=== PATIENT | male | born 1965 | race Caucasian/White ===

== ENCOUNTER 2023-08-23 08:34 | Day surgery (SDC) | payer BC ==
[2023-08-23] MEDS: Lactated Ringers 1,000 ML IV SCH (09:00)
[2023-08-23] MEDS: Nozin Nasal Sanitizer NASBOTH ONE (09:01)
[2023-08-23 09:13] LABS: HEMATOCRIT 44.9 % (38.4-49.7); HEMOGLOBIN 15.6 g/dL (12.9-16.9); MEAN CORPUSCULAR HEMOGLOBIN 30.9 pg (31.6-35.5); MEAN CORPUSCULAR HGB CONC 34.7 g/dL (31.6-35.5); MEAN CORPUSCULAR VOLUME 88.9 fL (81.4-99.0); RED BLOOD CELL COUNT 5.05 M/uL (4.14-5.76); WHITE BLOOD CELL COUNT,WBC 4.2 K/uL (3.2-11.0)
[2023-08-23 09:33] LABS: A/G RATIO 1.3 (1.2-2.2); ALANINE AMINOTRANSFERASE,ALT 32 U/L (12-78); ALBUMIN 4.1 g/dL (3.4-5.0); ALKALINE PHOSPHATASE 63 U/L (46-116); ANION GAP 10.4 mmol/L (5.0-14.0); ASPARTATE AMNIOTRANSFERASE,AST 23 U/L (15-37); BILIRUBIN TOTAL 0.6 mg/dL (0.2-1.0); BLOOD UREA NITROGEN,BUN 24 mg/dL (7-18); CALCIUM 9.3 mg/dL (8.5-10.1); CARBON DIOXIDE,CO2 28 mmol/L (21-32); CHLORIDE,CL 102 mmol/L (100-108); CREATININE 1.3 mg/dL (0.8-1.3); EST CRCL DRUG DOSING (CG) 49.67 mL/min; ESTIMATED GFR 64 mL/min (>60); GLUCOSE RANDOM 93 mg/dL (74-106); POTASSIUM,K 4.2 mmol/L (3.6-5.2); PROTEIN TOTAL,TP 7.3 g/dL (6.4-8.2); SODIUM,NA 140 mmol/L (140-148)
[2023-08-23] MEDS ORDERED: Midazolam 1 MG/ML 2 ML SDV ONE (10:38)
[2023-08-23] MEDS ORDERED: Propofol 200 MG/20 ML SDV ONE (10:38)
[2023-08-23] MEDS ORDERED: fentaNYL 100 MCG/2 ML SDV ONE (10:38)
[2023-08-23] MEDS ORDERED: Bupivacaine 0.5% 30 ML SDV ONE (10:39)
[2023-08-23] MEDS: ceFAZolin 2 GM in Premix Bag 1 BAG IV ONE (10:41)
[2023-08-23] MEDS: Bupivacaine 0.5% 30 ML SDV ONE (11:56)
[2023-08-23] MEDS: Acetaminophen/HYDROcodone 325-5 MG Tab PO ONE (13:31)
[2023-08-23 13:32] VITALS: BP 146/77; PULSE 57
== END 2023-08-23 14:00 | disposition home or self-care (01) ==
LOC: JP.SDS 08:34
PROVIDERS: ATTEND Specialist
DX: S46.111A Strain of muscle, fascia and tendon of long head of biceps, right arm, initial encounter (principal); M25.811 Other specified joint disorders, right shoulder; K21.9 Gastro-esophageal reflux disease without esophagitis; X58.XXXA Exposure to other specified factors, initial encounter
CPT/HCPCS: 29822; 36415; 80053; 85027; A9270; C1713; J0665; J0690; J2250; J2704; J3010; J7120